=== PATIENT | female | born 1990 | race Hispanic/Latino ===

== ENCOUNTER 2020-12-03 06:48 | Emergency (ER) | payer BC, OTHER ==
[~2020-12-03] VITALS: Ht 152.4 cm; Wt 45.4 kg
[2020-12-03 07:16] VITALS: BP 116/78
[2020-12-03] MEDS: ONDANSETRON ODT 4MG TAB SL SCH ×2 (07:56→07:59)
[2020-12-03] MEDS: DiphenhydrAMINE HCL 50 MG/ML VIAL IM SCH ×2 (07:56→07:59)
[2020-12-03] MEDS ORDERED: HYDR-3421 PO (08:47)
[2020-12-03 09:06] VITALS: BP 116/74
== END 2020-12-03 09:05 | disposition home or self-care (01) ==
LOC: EDH 07:07
DX: F41.1 Generalized anxiety disorder (principal); R11.2 Nausea with vomiting, unspecified; Z79.899 Other long term (current) drug therapy
CPT/HCPCS: 96372; 99283; J1200